=== PATIENT | female | born 1990 | race Caucasian/White ===

== ENCOUNTER 2022-02-07 08:20 | Emergency (ER) | payer BC, SELFPAY ==
--- NOTE | 2022-02-07 08:22 | ED.HA ---
HPI - Headache General Chief Complaint: Headache Stated Complaint: Headache Time Seen by Provider: 02/07/22 08:21 Source: patient Mode of arrival: ambulatory Limitations: no limitations History of Present Illness HPI Narrative: Lauren is a 31-year-old female patient presenting to clinic today with complaints of a headache times 24 hours. She reports she has not had any migraine headaches for over a year however she developed a headache yesterday. She reports his on the right side her head she has experienced some some light sensitivity and nausea as well. She denies any vomiting, dizziness, or visual changes. Rates her pain currently a 8/10 currently. Has been taking Excedrin for the headache without relief Related Data Home Medications Medication Instructions Recorded Confirmed pantoprazole 40 mg tablet,delayed 40 mg PO DAILY 02/07/22 02/07/22 release Allergies Allergy/AdvReac Type Severity Reaction Status Date / Time No Known Allergies Allergy Verified 02/07/22 08:31 Review of Systems Review of Systems: Pertinent positives per HPI. Patient denies any fever, chills, rash, visual changes, dizziness, cough, runny nose, sore throat, shortness of breath, chest pain, palpitations, nausea, vomiting, diarrhea, constipation, abdominal pain, or any urinary issues. PMFSH Comments At the time of my signature, I reviewed and agree with the nursing past medical, surgical, social, and family history. There is no relevant family history pertinent to the patient complaint. Exam Narrative: General: Well-developed, well nourished, in no apparent distress Head: Normocephalic, atraumatic Eyes: Pupils equally round and reactive to light bilaterally, EOM intact, sclera and conjunctive clear, no discharge, lids normal Ears: TMs intact and clear, ear canals clear, no drainage, grossly hearing normal. Nose: Nares patent, no discharge, no inflammation, no sinus tenderness. Mouth: Oropharynx without lesions or masses, good dentition, MMM. Neck: Supple, trachea midline, no enlargement of anterior or posterior cervical nodes, no thyroid masses or goiter palpable. Cardio: Regular rate and rhythm, s1 and s2 normal, no murmur appreciated. Resp: Clear to auscultation bilaterally anteriorly and posteriorly, no rhonchi, rales, wheezing or rubs Course Course Emergency Course: Portions of this record may have been created with voice recognition software. Level of Care: Express Care Visit Vital Signs Vital signs: Vital Signs Temperature 36.7 C 02/07/22 08:28 Pulse Rate 70 02/07/22 08:28 Respiratory Rate 16 02/07/22 08:28 Blood Pressure 128/62 02/07/22 08:28 Pulse Oximetry 100 02/07/22 08:28 Oxygen Delivery Room Air 02/07/22 08:28 Temperature 36.7 C 02/07/22 08:28 Pulse Rate 70 02/07/22 08:28 Respiratory Rate 16 02/07/22 08:28 Blood Pressure 128/62 02/07/22 08:28 Pulse Oximetry 100 02/07/22 08:28 Oxygen Delivery Room Air 02/07/22 08:28 Vital signs reviewed MDM - Headache MDM Narrative Medical decision making narrative: At the time of visit patient is resting comfortably on exam table. I suspect patient has a migraine headache. Toradol 60 mg IM, Benadryl 50 mg IM, and Zofran 0DT 4 mg was given in the clinic today for headache. Supportive measures were discussed with the patient she voiced understanding of discharge instructions agrees to treatment plan Differential Diagnosis Differential diagnosis: Likely migraine, tension headache and headache Discharge Plan Discharge Clinical Impression: Migraine Patient Disposition: Home, Self-Care Condition: Stable Instructions: Antibiotic Form, Migraine Headache (ED) Additional Instructions: Toradol 60 mg IM, Benadryl 50 mg IM, and Zofran 4 mg ODT given in the clinic today Go home and rest in a cool dark place Increase fluids and stay well hydrated May apply ice pack to your head to help alleviate pain
[2022-02-07 08:28] VITALS: BP 128/62; PULSE 70; RESP 16; TEMP 36.7; O2SAT 100
[2022-02-07] MEDS: ONDANSETRON HCL ODT 4 MG TABLET SUBLINGUAL (08:39)
[2022-02-07] MEDS: KETOROLAC (*BKC) 60 MG/2 ML VIAL IM (08:40)
[2022-02-07] MEDS: diphenhydrAMINE HCl INJ 50 MG/ML VIAL IM (08:40)
== END 2022-02-07 09:10 | disposition home or self-care (01) ==
PROVIDERS: Emergency Provider Nurse Practitioner Family
DX: G43.909 Migraine, unspecified, not intractable, without status migrainosus (principal)
CPT/HCPCS: 96372; 99214; A9270; G0463; J1200; J1885

== ENCOUNTER 2023-10-31 09:34 | Emergency (ER) | payer BC, SELFPAY ==
[2023-10-31 09:41] VITALS: BP 129/74; PULSE 83; RESP 18; TEMP 36.4; O2SAT 99
--- NOTE | 2023-10-31 10:37 | ED.GENADULT ---
HPI - General Adult General Chief complaint: Eye Problems Stated complaint: Eye Problem Source: patient Mode of arrival: ambulatory Limitations: no limitations History of Present Illness HPI narrative: Patient presents for evaluation of bilateral eye symptoms for the last 2 days. Symptoms include itching, redness, and waking from sleep in the morning with lids matted shut. She also reports some sinus congestion. No fever, visual disturbance, nausea, vomiting, diarrhea, cough, shortness of breath. No recent sick contacts to her knowledge. She wears glasses but not contact lenses. She is not taking any medications to assist with her symptoms. Related Data Home Medications Medication Instructions Recorded Confirmed pantoprazole 40 mg tablet,delayed 40 mg PO DAILY 02/07/22 10/31/23 release buspirone 10 mg tablet 20 mg PO BID 10/31/23 10/31/23 diazepam 10 mg tablet mg 10/31/23 10/31/23 quetiapine 50 mg tablet 50 mg PO HS 10/31/23 10/31/23 zolpidem 5 mg tablet See Rx Instructions .Route .COMPLEX 10/31/23 10/31/23 Allergies Allergy/AdvReac Type Severity Reaction Status Date / Time No Known Allergies Allergy Verified 10/31/23 09:57 Review of Systems Review of Systems: CONSTITUTIONAL: Denies fever, chills, or sweats. EYES: Reports bilateral eye pruritus thick drainage from the eyes in the morning with associated matting ENT: Reports sinus congestion. Denies rhinorrhea sore throat, or otalgia. CARDIOVASCULAR: Denies chest pain, palpitations, or edema. RESPIRATORY: Denies cough or dyspnea. GASTROINTESTINAL: Denies abdominal pain, nausea, vomiting, or diarrhea. GENITOURINARY: Denies dysuria or hematuria. SKIN: Denies rash or itching. MUSCULOSKELETAL: Denies back pain, joint pain, or myalgia. NEUROLOGIC: Denies headache, numbness, dizziness, or weakness. PSYCHIATRIC: Denies anxiety or depression. [facility] Past Medical History Medical History Anxiety Migraine Surgical History Surgical History History of Family History Family History Mother Family history non-contributory Social History Social History Smoking status: Never smoker Substance use: never Living arrangements: with family Gender identity (if verbalized by the patient): Female Sexual Orientation (if Verbalized by the Patient): Straight or Heterosexual Exam Narrative: GENERAL: Well-appearing, well-nourished, and in no acute distress. HEAD: Normocephalic, atraumatic. EYES: PERRLA and EOMI. Trace swelling noted to bilateral upper lower eyelids ENT: Nares clear, no rhinorrhea or epistaxis. Mucous membranes moist. Oropharynx without tonsillar hypertrophy exudate or other lesions. Bilateral TMs pearly robison nonbulging NECK: Supple. No adenopathy or masses. No carotid bruits or JVD CHEST: Clear to auscultation. No respiratory distress. No wheezes rales or rhonchi HEART: Regular rate and rhythm. No murmur heard. Normal peripheral pulses. ABDOMEN: Soft, nontender, nondistended, normal active bowel sounds. EXTREMITIES: Normal range of motion. No edema. SKIN: Warm, dry, no rash. NEURO: No focal deficits. Alert and oriented x3. PSYCH: Normal mood and affect. Course Course Emergency Course: This is a 33-year-old female who presented for evaluation of swelling and drainage from both eyes. Exam is consistent with conjunctivitis. Treat with erythromycin. Increase hydration. [id number] agents for symptom management. Follow up with primary provider. Go to the ER for worsening symptoms. Patient in agreement plan of care Level of Care: Express Care Visit Vital Signs Vital signs: Vital Signs Temperature 36.4 C 10/31/23 09:41 Pulse Rate 83 10/31/23 09:41 Respiratory Rate
== END 2023-10-31 10:40 | disposition home or self-care (01) ==
PROVIDERS: Emergency Provider Nurse Practitioner
DX: H10.9 Unspecified conjunctivitis (principal); F41.9 Anxiety disorder, unspecified
CPT/HCPCS: 99213; G0463